=== PATIENT | female | born 2000 | race Caucasian/White ===

== ENCOUNTER 2019-07-23 03:20 | Emergency (ER) | payer SELFPAY ==
[~2019-07-23] VITALS: Ht 162.6 cm; Wt 81.6 kg
[2019-07-23 03:20] VITALS: BP 115/55
[2019-07-23 03:42] VITALS: BP 115/55
== END 2019-07-23 03:42 ==
LOC: MED 03:20
DX: Z02.89 Encounter for other administrative examinations (principal); Z98.890 Other specified postprocedural states; V49.60XA Unspecified car occupant injured in collision with unspecified motor vehicles in traffic accident, initial encounter; Y93.89 Activity, other specified; Y92.89 Other specified places as the place of occurrence of the external cause; Y99.8 Other external cause status
CPT/HCPCS: 99283